=== PATIENT | male | born 1980 | race Caucasian/White ===

== ENCOUNTER 2017-01-26 08:41 | Day surgery (SDC) | payer OTHER ==
--- NOTE | ~2017-01-26 | EGD ---
EGD REPORT [facility] [address] [place] [address] NAME: ERIK GOLD : [birth year] STATUS : REG [facility]#: [id number] AGE: 36 ADM/REG DATE : 01/26/17 MR#: [id number] REPORT SERV DATE: 01/26/17 DICTATED BY: VICTOR MANUEL DURÁN DATE: 01/26/17 REPORT STATUS : Draft TRANSCRIBED BY: [facility] DATE: 01/26/17 [facility] Center Patient Name: Erik Gold Date of : 1980 Attending MD: MIGUEL ANGEL DURÁN MD Procedure Date No Time: 01/26/2017 Procedure: Colonoscopy Indications: Colon cancer screening in patient at increased risk: Colorectal cancer in multiple 2nd degree relatives, High risk colon cancer surveillance: Personal history of colonic polyps Referring MD: Ramiro SANDERSON II Medicines: See the Anesthesia note for documentation of the administered medications Complications: No immediate complications. Estimated blood loss: None. Procedure: Pre-Anesthesia Assessment: - ASA Grade Assessment: III - A patient with severe systemic disease. After I obtained informed consent, the scope was passed under direct vision. Throughout the procedure, the patient's blood pressure, pulse, and oxygen saturations were monitored continuously. The PCF [id number] was introduced through the anus and advanced to the terminal ileum. The colonoscopy was performed without difficulty. The ileocecal valve, appendiceal orifice, terminal ileum and rectum were photographed. The entire colon was examined. The colonoscopy was performed without difficulty. The patient tolerated the procedure well. The quality of the bowel preparation was adequate. Findings: The perianal and digital rectal examinations were normal. The terminal ileum appeared normal. A sessile polyp was found at the hepatic flexure. The polyp was 5 mm in size. The polyp was removed with a cold snare. Resection and retrieval were complete. Non-bleeding internal hemorrhoids were found during retroflexion and were Grade I (internal hemorrhoids that do not prolapse). Impression: - The examined portion of the ileum was normal. - One 5 mm polyp at the hepatic flexure. Resected and retrieved. - Non-bleeding internal hemorrhoids. Recommendation: - Patient has a contact number available for EGD REPORT [address] [address] NAME: ERIK GOLD : [birth year] STATUS : REG [facility]#: [id number] AGE: 36 ADM/REG DATE : 01/26/17 MR#: [id number] REPORT SERV DATE: 01/26/17 DICTATED BY: VICTOR MANUEL DURÁN DATE: 01/26/17 REPORT STATUS : Draft TRANSCRIBED BY: [employer] DATE: 01/26/17 emergencies. The signs and symptoms of potential delayed complications were discussed with the patient. Return to normal activities tomorrow. Written discharge instructions were provided to the patient. - Regular diet. - Discharge patient to home. - Continue present medications. - Await pathology results. - Repeat colonoscopy in 5 years for surveillance. Procedure Code(s): --- Professional --- 62023, Colonoscopy, flexible, proximal to splenic flexure; with removal of tumor(s), polyp(s), or other lesion(s) by snare technique Diagnosis Code(s): --- Professional --- K64.0, First degree hemorrhoids D12.3, Benign neoplasm of transverse colon Z12.11, Encounter for screening for malignant neoplasm of colon Z80.0, Family history of malignant neoplasm of digestive organs Z86.010, Personal history of colonic polyps CPT copyright 2013 [employer]. All rights reserved. The codes documented in this report are preliminary and upon engine service repairer review may be revised to meet current compliance requirements. MIGUEL ANGEL DURÁN MD 01/26/2017 11:30 AM This report has been signed electronically. Number of Addenda: 0 Note Initiated On: 01/26/2017 10:58 AM Scope Withdrawal Time 0 hours 10 minutes 28 seconds [address] [place] [address]
[~2017-01-26 08:41] MED LIST: ATEN50 PO; IBU400 PO
== END 2017-01-26 23:59 | disposition home or self-care (01) ==
LOC: DMU 08:41
PROVIDERS: Internal Medicine Gastroenterology
PROC: 0DBK8ZZ Excision of Ascending Colon, Via Natural or Artificial Opening Endoscopic (ICD-10-PCS; principal; 2017-01-26 10:00)
DX: Z12.11 Encounter for screening for malignant neoplasm of colon (principal); I10 Essential (primary) hypertension; E66.9 Obesity, unspecified; D12.2 Benign neoplasm of ascending colon; K64.0 First degree hemorrhoids; M19.90 Unspecified osteoarthritis, unspecified site; K21.9 Gastro-esophageal reflux disease without esophagitis; G43.909 Migraine, unspecified, not intractable, without status migrainosus; H91.90 Unspecified hearing loss, unspecified ear; F17.210 Nicotine dependence, cigarettes, uncomplicated; Z80.0 Family history of malignant neoplasm of digestive organs; Z86.010 Personal history of colon polyps; Z98.890 Other specified postprocedural states
CPT/HCPCS: 88305